=== PATIENT | female | born 1985 | race Caucasian/White ===

== ENCOUNTER 2023-01-09 09:30 | Emergency (ER) | payer BC, OTHER ==
[~2023-01-09] VITALS: Ht 162.6 cm; Wt 49.9 kg
[2023-01-09] MEDS ORDERED: IV NORMAL SALINE 500 ML BAG IV ONE (10:00)
[2023-01-09 10:44] LABS: BASOPHILS % (AUTO) 0.5 % (0.0-2.0); EOSINOPHILS # (AUTO) 0.7 K/uL (0.0-0.7); EOSINOPHILS % (AUTO) 9.9 % (0.0-7.0); HEMATOCRIT 43.7 % (31.2-41.9); HEMOGLOBIN 14.8 g/dL (10.9-14.3); LYMPHOCYTES # (AUTO) 1.7 K/uL (0.8-4.8); LYMPHOCYTES % (AUTO) 23.6 % (20.5-51.5); MEAN CORPUSCULAR HEMOGLOBIN 30.8 uug (24.7-32.8); MEAN CORPUSCULAR HGB CONC 34 g/dL (32.3-35.6); MEAN CORPUSCULAR VOLUME 91.1 fL (75.5-95.3); MONOCYTES # (AUTO) 0.4 K/uL (0.1-1.30); MONOCYTES % (AUTO) 5.5 % (0.0-11.0); NEUTROPHILS # (AUTO) 4.3 K/uL (1.8-8.9); NEUTROPHILS % (AUTO) 60.5 % (38.5-71.5); PLATELET COUNT (AUTO) 363 K/uL (179-408); RED CELL DISTRIBUTION WIDTH 13.2 % (12.3-17.7); WHITE BLOOD COUNT (AUTO) 7.1 K/uL (3.8-11.8)
[2023-01-09 10:47] LABS: DIFFERENTIAL COMMENT 1
[2023-01-09 10:49] LABS: *BILIRUBIN,URIN NEGATIVE (NEGATIVE); *CLARITY,URINE CLEAR (CLEAR); *COLOR,URINE YELLOW (YELLOW); *KETONES,URINE TRACE (NEGATIVE); *PROTEIN,URINE NEGATIVE (NEGATIVE); *UROBILINOGEN,URINE 0.2 E.U./dl (NORMAL); LEUKOCYTE ESTERASE ,URINE NEGATIVE (NEGATIVE); NITRITE, URINE NEGATIVE (NEGATIVE); PH,URINE 6.5 (5.0-8.0); UGLUCOSE NEGATIVE (NEGATIVE)
[2023-01-09 10:50] LABS: *BLOOD, URINE TRACE (NEGATIVE)
[2023-01-09] MEDS ORDERED: KETOROLAC TROMETHAMINE 30 MG INJ ONE (10:52)
[2023-01-09 10:54] LABS: *URINE HCG, QUAL NEGATIVE (NEGATIVE)
[2023-01-09] MEDS ORDERED: KETOROLAC TROMETHAMINE 30 MG INJ IVP ONE (11:00)
[2023-01-09 11:01] LABS: CALCIUM 9.7 mg/dL (8.5-10.1); CREATININE 0.8 mg/dL (0.6-1.3)
[2023-01-09 11:01] LABS: BACTERIA,URINE FEW /HPF (NONE SEEN); RBC,URINE 0-3 /HPF (0-3); SQUAMOUS EPITHELIAL CELL,UR FEW /HPF (NONE SEEN); WBC,URINE 0-3 /HPF (0-3)
[2023-01-09 11:06] LABS: ALBUMIN 4.4 g/dL (3.4-5.0); BILIRUBIN,DIRECT 0.1 mg/dL (0.0-0.2); BILIRUBIN,TOTAL 0.7 mg/dL (0.2-1.0); TOTAL PROTEIN, SERUM 8.4 g/dL (6.4-8.2)
[2023-01-09] MEDS ORDERED: ONDA-104 PO (11:47)
[2023-01-09] MEDS ORDERED: FAMO20TA8 PO (11:47)
[2023-01-09 12:03] VITALS: BP 110/73; TEMP 98.5; O2SAT 99
[2023-01-10] MEDS ORDERED: PANT40TA2 PO (06:05)
[2023-01-10] MEDS ORDERED: MONT5TAB14 PO (06:05)
[2023-01-10] MEDS ORDERED: HYDR-3972 PO (06:05)
== END 2023-01-09 12:03 | disposition home or self-care (01) ==
LOC: ER 09:30
DX: R10.84 Generalized abdominal pain (principal); K29.70 Gastritis, unspecified, without bleeding; Z88.8 Allergy status to other drugs, medicaments and biological substances; Z79.899 Other long term (current) drug therapy
CPT/HCPCS: 99285; 74176; 96374; 96361; 80076; 80048; 81001; 84703; 83690; 85025; 36415; J1885; J7040; A4606; A4663

== ENCOUNTER 2023-01-10 04:00 | Emergency (ER) | payer BC, OTHER ==
[~2023-01-10] VITALS: Ht 162.6 cm; Wt 49.9 kg
[~2023-01-10 04:00] MED LIST: FAMO20TA8 PO; ONDA-104 PO
[2023-01-10] MEDS ORDERED: MORPHINE SULFATE 2 MG/1 ML DISP.SYRIN ONE (04:29)
[2023-01-10] MEDS ORDERED: MORPHINE SULFATE 4 MG/1 ML DISP.SYRIN ONE (04:29)
[2023-01-10] MEDS ORDERED: MORPHINE SULFATE 4 MG/1 ML DISP.SYRIN IV ONE (04:30)
[2023-01-10] MEDS ORDERED: PANTOPRAZOLE SODIUM 40 MG VIAL IV ONE (04:30)
[2023-01-10 04:31] LABS: BASOPHILS # (AUTO) 0.1 K/UL (0.0-0.2); BASOPHILS % (AUTO) 0.6 % (0.0-2.0); EOSINOPHILS # (AUTO) 0.8 K/uL (0.0-0.7); HEMATOCRIT 38.2 % (31.2-41.9); LYMPHOCYTES # (AUTO) 2.1 K/uL (0.8-4.8); LYMPHOCYTES % (AUTO) 24.3 % (20.5-51.5); MEAN CORPUSCULAR HEMOGLOBIN 30.8 uug (24.7-32.8); MEAN CORPUSCULAR HGB CONC 34 g/dL (32.3-35.6); MEAN CORPUSCULAR VOLUME 90.4 fL (75.5-95.3); MONOCYTES # (AUTO) 0.6 K/uL (0.1-1.30); MONOCYTES % (AUTO) 6.9 % (0.0-11.0); NEUTROPHILS # (AUTO) 5.2 K/uL (1.8-8.9); NEUTROPHILS % (AUTO) 59.2 % (38.5-71.5); PLATELET COUNT (AUTO) 339 K/uL (179-408); RED BLOOD CELL COUNT(AUTO) 4.22 MIL/uL (3.63-4.92); RED CELL DISTRIBUTION WIDTH 12.8 % (12.3-17.7); WHITE BLOOD COUNT (AUTO) 8.7 K/uL (3.8-11.8)
[2023-01-10] MEDS ORDERED: ONDANSETRON 4 MG/2 ML VIAL ONE ×2 (04:37→08:05)
[2023-01-10] MEDS ORDERED: ONDANSETRON 4 MG/2 ML VIAL IV ONE ×3 (04:45→08:30)
[2023-01-10] MEDS ORDERED: IV NORMAL SALINE 1000 ML BAG IV ONE (04:45)
[2023-01-10 04:49] LABS: DIFFERENTIAL COMMENT 1
[2023-01-10] MEDS ORDERED: PANTOPRAZOLE SODIUM 40 MG VIAL ONE (04:52)
[2023-01-10 04:57] LABS: *BILIRUBIN,URIN NEGATIVE (NEGATIVE); *BLOOD, URINE NEGATIVE (NEGATIVE); *CLARITY,URINE CLEAR (CLEAR); *COLOR,URINE YELLOW (YELLOW); *KETONES,URINE NEGATIVE (NEGATIVE); *PROTEIN,URINE NEGATIVE (NEGATIVE); *UROBILINOGEN,URINE 0.2 E.U./dl (NORMAL); LEUKOCYTE ESTERASE ,URINE NEGATIVE (NEGATIVE); NITRITE, URINE NEGATIVE (NEGATIVE); UGLUCOSE NEGATIVE (NEGATIVE)
[2023-01-10 04:57] LABS: CALCIUM 9.3 mg/dL (8.5-10.1); CREATININE 0.8 mg/dL (0.6-1.3); POTASSIUM 3.9 mmol/L (3.5-5.1)
[2023-01-10 05:02] LABS: *URINE HCG, QUAL NEGATIVE (NEGATIVE)
[2023-01-10 05:03] LABS: ALBUMIN 3.7 g/dL (3.4-5.0); BILIRUBIN,DIRECT 0.1 mg/dL (0.0-0.2); BILIRUBIN,TOTAL 0.5 mg/dL (0.2-1.0); TOTAL PROTEIN, SERUM 6.8 g/dL (6.4-8.2)
[2023-01-10] MEDS ORDERED: HYDROMORPHONE 1 MG/1 ML DISP.SYRIN IV ONE ×2 (05:15→07:15)
[2023-01-10] MEDS ORDERED: HYDROMORPHONE 1 MG/1 ML DISP.SYRIN ONE ×2 (05:15→07:48)
[2023-01-10] MEDS ORDERED: HYDR-3972 PO (06:05)
[2023-01-10] MEDS ORDERED: MONT5TAB14 PO (06:05)
[2023-01-10] MEDS ORDERED: PANT40TA2 PO (06:05)
[2023-01-10] MEDS ORDERED: MAG HYDROX/AL HYDROX/SIMETH 30 ML LIQUID UDC PO ONE (07:15)
[2023-01-10] MEDS ORDERED: LIDOCAINE VISCUS 2% 15 ML UDC MM ONE (07:15)
[2023-01-10] MEDS ORDERED: FAMOTIDINE. 20 MG/2 ML VIAL IV ONE ×2 (07:15→07:49)
[2023-01-10] MEDS ORDERED: LIDOCAINE VISCUS 2% 15 ML UDC ONE (07:48)
[2023-01-10] MEDS ORDERED: MAG HYDROX/AL HYDROX/SIMETH 30 ML LIQUID UDC ONE (07:48)
[2023-01-10] MEDS ORDERED: METOCLOPRAMIDE HCL 10 MG/2 ML VIAL ONE (08:57)
[2023-01-10] MEDS ORDERED: METOCLOPRAMIDE HCL 10 MG/2 ML VIAL IV ONE (09:00)
[2023-01-10 09:20] VITALS: BP 110/72; O2SAT 98
== END 2023-01-10 09:22 | disposition home or self-care (01) ==
LOC: ER 04:03
DX: R10.10 Upper abdominal pain, unspecified (principal); Z88.8 Allergy status to other drugs, medicaments and biological substances; Z79.899 Other long term (current) drug therapy; Z91.041 Radiographic dye allergy status
CPT/HCPCS: 99285; 76705; 96375; 96374; 96361; 80076; 80048; 81003; 84703; 83690; 85025; 36415; 76856; 96376; J3490; J2765; J2405 ×2; C9113; J1170 ×2; J2270 ×2; J7040; A4606; A4663